=== PATIENT | female | born 1995 | race Caucasian/White ===

== ENCOUNTER 2021-09-05 21:06 | Emergency (ER) | payer OTHER ==
[2021-09-05 21:56] LABS: HEMOGLOBIN 13.4 gm/dl (12.3-15.3); RED BLOOD COUNT 4.27 M/UL (4.00-5.10); WHITE BLOOD COUNT 11.9 K/UL (4.5-11.0)
[2021-09-05 22:30] LABS: BUN/CREATININE RATIO 12 (0-10)
== END 2021-09-06 01:26 | disposition home or self-care (01) ==
LOC: ER1 21:06
PROVIDERS: Physician Assistant Medical
DX: O46.91 Antepartum hemorrhage, unspecified, first trimester (principal); Z3A.09 9 weeks gestation of pregnancy
CPT/HCPCS: 76817; 80053; 81001; 84702; 85025; 86900; 86901; 87086; 99284